=== PATIENT | female | born 1985 | race Caucasian/White ===

== ENCOUNTER 2017-11-21 10:56 | Inpatient (IN) | payer BC ==
[2017-11-21] MEDS ORDERED: Butorphanol 1 MG/ML SDV IVPUSH PRN (11:26)
[2017-11-21] MEDS ORDERED: Misoprostol 200 MCG Tab PO PRN (11:26)
[2017-11-21] MEDS ORDERED: Carboprost Tromethamine 250 MCG/1 ML Amp IM PRN (11:26)
[2017-11-21] MEDS ORDERED: Sodium Chloride 0.9% 2.5 ML Syringe FLUSH PRN ×2 (11:26→11:38)
[2017-11-21] MEDS ORDERED: Nalbuphine 10 MG/1 ML Vial IVPUSH PRN (11:26)
[2017-11-21] MEDS ORDERED: Water For Irrigation,Sterile 1,000 ML Container IRR PRN (11:26)
[2017-11-21] MEDS ORDERED: Sodium Chloride 0.9% 10 ML Syringe FLUSH PRN ×2 (11:26→11:38)
[2017-11-21] MEDS ORDERED: Methylergonovine 0.2 MG/1 ML Amp IM PRN (11:26)
[2017-11-21] MEDS ORDERED: Terbutaline 1 MG/ML SDV SUBCUT PRN (11:26)
[2017-11-21] MEDS ORDERED: Lidocaine 1% 50 ML MDV INJECT PRN (11:26)
[2017-11-21] MEDS ORDERED: Oxytocin/0.9 % Sodium Chloride 30 UNIT/500 ML BAG IV SCH ×2 (11:30)
[2017-11-21] MEDS ORDERED: Lactated Ringers 1,000 ML IV SCH (11:30)
[2017-11-21] MEDS ORDERED: Magnesium Sulfate/Water 4 GM in Premix Bag 1 BAG IV ONE ×2 (11:33→11:38)
[2017-11-21] MEDS ORDERED: Calcium Gluconate 10% 1 GM/10 ML SDV IV PRN (11:38)
[2017-11-21] MEDS ORDERED: Magnesium Sulfate/Water 40 GM/1,000 ML BAG IV SCH ×2 (11:45)
[2017-11-21 12:36] LABS: CHLORIDE,CL 106 mmol/L (98-110); SODIUM,NA 137 mmol/L (136-146)
[2017-11-21] MEDS ORDERED: Carboprost Tromethamine 250 MCG/1 ML Amp ONE (21:21)
[2017-11-21] MEDS ORDERED: Acetaminophen 500 MG Tab PO PRN (21:39)
[2017-11-21] MEDS ORDERED: Bisacodyl 10 MG Supp RECTAL PRN (21:39)
[2017-11-21] MEDS ORDERED: Witch Hazel Medicated Pads 40/Jar TOP PRN (21:39)
[2017-11-21] MEDS ORDERED: oxyCODONE 5 MG Tab PO PRN (21:39)
[2017-11-21] MEDS ORDERED: Docusate Sodium 100 MG Cap PO PRN (21:39)
[2017-11-21] MEDS ORDERED: Benzocaine/Menthol 20%-0.5% Spray 78 GM Cannister TOP PRN (21:39)
[2017-11-21] MEDS ORDERED: Lanolin 100% Cream 7 GM Tube TOP PRN (21:39)
--- NOTE | 2017-11-22 02:07 | OR ---
SURGEON: Keysha Rodriguez M.D. DATE OF PROCEDURE: 11/21/2017 PREOPERATIVE DIAGNOSIS: 37-week intrauterine with mild preeclampsia. POSTOPERATIVE DIAGNOSIS: 37-week intrauterine with mild preeclampsia. PROCEDURE: Pitocin induction of labor, term spontaneous vaginal delivery with magnesium for seizure prophylaxis. ANESTHESIA: None. EBL: Approximately 500 mL. She was given a single dose of Hemabate. COMPLICATIONS: None known. DISPOSITION: Mother and baby are in LDRP in good condition. BRIEF HISTORY: This is a 32-year-old female. She is G3, P2 who presents for induction of labor at 37 weeks. She has had elevated blood pressures in the clinic in the 140- 150/80+ range with proteinuria. Her 24-hour urine was 342 mg and she was given the option of continued expectant management versus induction of labor. She does desire induction of labor. I explained that she does require magnesium as she carries a diagnosis of mild preeclampsia based on blood pressures elevated and 24-hour urine over 300 mg of protein. She was started on magnesium for seizure prophylaxis. She was started on Pitocin. She was initially 1-2 cm dilated, 50% effaced, -3 station. When she was 3-4 cm dilated, artificial rupture of membranes was performed. She was continued on Pitocin at 16 milliunits per minute and she progressed to complete with category 1 heart tones throughout labor. DESCRIPTION OF PROCEDURE: With the patient in dorsal lithotomy position, the patient pushed over 3 contractions to a 5+ station, at which time the head was delivered spontaneously and atraumatically over the perineum with support, with subsequent delivery of the 's shoulders and body without any difficulty. The infant was bulb suctioned by nose and mouth. The cord was clamped x2 after it had ceased to pulsate and the was handed to the mother in the presence of the nurse attending delivery. The infant was a liveborn female, scores 7 and 8, weight is 2620 g. Cord blood was collected for cord ABGs as well as routine cord blood sampling. Pitocin was initiated after delivery of the to assist with delivery of the placenta which was delivered spontaneously, Schultze intact with 3 vessels. Upon inspection of the pelvis and perineum, there were no periurethral, vaginal sidewall, cervical, rectal, or perineal lacerations. EBL was approximately 500 mL. Approximately 10 minutes after the baby was born, she did have an additional gush of fluid with fundal massage and IV Pitocin. The fundus would firm up for several minutes, but then would become boggy again, therefore she did receive a single dose of Hemabate 250 mcg with a total blood loss of approximately 500 mL. There were no known complications. Sponge, needle, and instrument counts were correct. The mother and remained in LDRP in good condition. [place] / ANGÉLICA /[id number]
[2017-11-22] MEDS: Ibuprofen 400 MG Tab PO PRN ×3 (03:06→19:59)
--- NOTE | 2017-11-22 10:41 | PCM.PNPP ---
- General Info Functional Status: Reports: Pain Controlled, Tolerating Diet, Ambulating, Urinating - Review of Systems General: Reports: No Symptoms HEENT: Reports: No Symptoms Pulmonary: Reports: No Symptoms Cardiovascular: Reports: No Symptoms Gastrointestinal: Reports: No Symptoms Genitourinary: Reports: No Symptoms Musculoskeletal: Reports: No Symptoms Skin: Reports: No Symptoms Neurological: Reports: No Symptoms Psychiatric: Reports: No Symptoms - Patient Data Vital Signs - Most Recent: Last Vital Signs Temp 36.4 C 11/22/17 05:00 Pulse 83 11/22/17 08:00 Resp 17 11/22/17 08:00 BP 108/58 L 11/22/17 08:00 Pulse Ox 95 11/22/17 08:00 Weight - Most Recent: 100.698 kg I&O - Last 24 Hours: Intake & Output 11/21/17 11/22/17 11/22/17 22:59 06:59 14:59 Intake Total 2729 Output Total 3500 Balance -771 Lab Results - Last 24 Hours: Laboratory Results - last 24 hr 11/21/17 11/21/17 11/21/17 Range/Units 10:02 12:02 12:02 WBC 11.68 H (4.0-11.0) K/uL RBC 3.79 L (4.30-5.90) M/uL Hgb 11.4 L (12.0-16.0) g/dL Hct 34.5 L (36.0-46.0) % MCV 91.0 (80.0-98.0) fL MCH 30.1 (27.0-32.0) pg MCHC 33.0 (31.0-37.0) g/dL RDW Std Deviation 45.4 (28.0-62.0) fl RDW Coeff of Joshua 14 (11.0-15.0) % Plt Count 262 (150-400) K/uL MPV 11.10 (7.40-12.00) fL Nucleated RBC % 0.0 /100WBC Nucleated RBCs # 0 K/uL Sodium 137 (136-146) mmol/L Potassium 3.9 (3.5-5.1) mmol/L Chloride 106 (98-110) mmol/L Carbon Dioxide 23 (21-31) mmol/L BUN 7 (6.0-23.0) mg/dL Creatinine 0.7 (0.6-1.5) mg/dL Est Cr Clr Drug Dosing 100.78 mL/min Estimated GFR (MDRD) > 60.0 ml/min Glucose 83 (60-110) mg/dL Uric Acid 5.4 (2.1-6.2) mg/dL Calcium 8.9 (8.8-10.8) mg/dL Magnesium (1.5-2.3) mEq/L Total Bilirubin 0.3 (0.1-1.5) mg/dL AST 22 (5-40) IU/L ALT 22 (8-54) IU/L Alkaline Phosphatase 200 H (40-150) Total Protein 6.2 (6.0-8.0) g/dL Albumin 3.4 L (3.5-5.0) g/dL Globulin 2.8 (2.0-3.5) g/dL Albumin/Globulin Ratio 1.2 L (1.3-2.8) Blood Type A POSITIVE Antibody Screen NEGATIVE 11/21/17 11/21/17 11/22/17 Range/Units 17:22 23:13 06:12 WBC (4.0-11.0) K/uL RBC (4.30-5.90) M/uL Hgb (12.0-16.0) g/dL Hct (36.0-46.0) % MCV (80.0-98.0) fL MCH (27.0-32.0) pg MCHC (31.0-37.0) g/dL RDW Std Deviation (28.0-62.0) fl RDW Coeff of Joshua (11.0-15.0) % Plt Count (150-400) K/uL MPV (7.40-12.00) fL Nucleated RBC % /100WBC Nucleated RBCs # K/uL Sodium (136-146) mmol/L Potassium (3.5-5.1) mmol/L Chloride (98-110) mmol/L Carbon Dioxide (21-31) mmol/L BUN (6.0-23.0) mg/dL Creatinine (0.6-1.5) mg/dL Est Cr Clr Drug Dosing mL/min Estimated GFR (MDRD) ml/min Glucose (60-110) mg/dL Uric Acid (2.1-6.2) mg/dL Calcium (8.8-10.8) mg/dL Magnesium 3.1 H 3.6 H 4.2 H (1.5-2.3) mEq/L Total Bilirubin (0.1-1.5) mg/dL AST (5-40) IU/L ALT (8-54) IU/L Alkaline Phosphatase (40-150) Total Protein (6.0-8.0) g/dL Albumin (3.5-5.0) g/dL Globulin (2.0-3.5) g/dL Albumin/Globulin Ratio (1.3-2.8) Blood Type Antibody Screen 11/22/17 Range/Units 06:12 WBC (4.0-11.0) K/uL RBC (4.30-5.90) M/uL Hgb 10.8 L (12.0-16.0) g/dL Hct 32.2 L (36.0-46.0) % MCV (80.0-98.0) fL MCH (27.0-32.0) pg MCHC (31.0-37.0) g/dL RDW Std Deviation (28.0-62.0) fl RDW Coeff of Joshua (11.0-15.0) % Plt Count (150-400) K/uL MPV (7.40-12.00) fL Nucleated RBC % /100WBC Nucleated RBCs # K/uL Sodium (136-146) mmol/L Potassium (3.5-5.1) mmol/L Chloride (98-110) mmol/L Carbon Dioxide (21-31) mmol/L BUN (6.0-23.0) mg/dL Creatinine (0.6-1.5) mg/dL Est Cr Clr Drug Dosing mL/min Estimated GFR (MDRD) ml/min Glucose (60-110) mg/dL Uric Acid (2.1-6.2) mg/dL Calcium (8.8-10.8) mg/dL Magnesium (1.5-2.3) mEq/L Total Bilirubin (0.1-1.5) mg/dL AST (5-40) IU/L ALT (8-54) IU/L Alkaline Phosphatase (40-150) Total Protein (6.0-8.0) g/dL Albumin (3.5-5.0) g/dL Globulin (2.0-3.5) g/dL Albumin/Globulin Ratio (1.3-2.8) Blood Type Antibody Screen Med Orders - Current: Current Medications Acetaminophen (Tylenol Extra Strength) 1,000 mg PO Q4H PRN PRN Reason: Pain Benzocaine/Menthol (Dermoplast Pain Relief 20%-0.5% [place]) 78 gm TOP ASDIRECTED PRN PRN Reason: Perineal Comfort Measure Bisacodyl (Dulcolax) 10 mg RECTAL .ONCE PRN PRN Reason: Constipation Butorphanol Tartrate (Stadol) 1 mg IVPUSH Q1H PRN PRN Reason: Pain Calcium Gluconate (Calcium Gluconate) 1 gm IV ASDIRECTED PRN PRN Reason: respiratory distress Carboprost Tromethamine (Hemabate Ds) 250 mcg IM ASDIRECTED PRN PRN Reason: Post Hemorrhage Last Admin: 11/21/17 21:41 Dose: 250 mcg Docusate Sodium (Colace) 100 mg PO BID PRN PRN Reason: Constipation Emollient Ointment (Lansinoh Hpa) 0 gm TOP ASDIRECTED PRN PRN Reason: Sore Nipples Lactated Ringer's (Ringers, Lactated) 1,000 mls @ 150 mls/hr IV ASDIRECTED ANDI Last Admin: 11/21/17 12:21 Dose: 150 mls/hr Oxytocin/Sodium Chloride (Oxytocin 30 Unit/500 Ml-Ns) 30 unit in 500 mls @ 50 mls/hr IV TITRATE ANDI Oxytocin/Sodium Chloride (Oxytocin 30 Unit/500 Ml-Ns) 30 unit in 500 mls @ 2 mls/hr IV TITRATE ANDI; 2 MUNITS/MIN PRN Reason: Protocol Last Titration: 11/21/17 18:37 Dose: 16 munits/min, 16 mls/hr Magnesium Sulfate (Magnesium Sulfate 40 Gm In Water 1000 Ml) 40 gm in 1,000 mls @ 50 mls/hr IV ASDIRECTED ANDI PRN Reason: 2 GM/HR Last Admin: 11/21/17 13:11 Dose: 2 gm/hr, 50 mls/hr Ibuprofen (Motrin) 400 mg PO Q4H PRN PRN Reason: Pain Last Admin: 11/22/17 03:06 Dose: 400 mg Lidocaine HCl (Xylocaine 1%) 50 ml INJECT .ONCE PRN PRN Reason: Laceration repair Methylergonovine Maleate (Methergine) 0.2 mg IM ASDIRECTED PRN PRN Reason: Post Hemorrhage Misoprostol (Cytotec) 200 mcg PO .ONCE PRN PRN Reason: Post Hemorrhage Nalbuphine HCl (Nubain) 10 mg IVPUSH Q1H PRN PRN Reason: Pain (severe 7-10) Oxycodone HCl (Oxycodone) 5 mg PO Q2H PRN PRN Reason: Pain Sodium Chloride (Saline Flush) 10 ml FLUSH ASDIRECTED PRN PRN Reason: Keep Vein Open Sodium Chloride (Saline Flush) 2.5 ml FLUSH ASDIRECTED PRN PRN Reason: Keep Vein Open Sodium Chloride (Saline Flush) 10 ml FLUSH ASDIRECTED PRN PRN Reason: Keep Vein Open Sodium Chloride (Saline Flush) 2.5 ml FLUSH ASDIRECTED PRN PRN Reason: Keep Vein Open Sterile Water (Sterile Water For Irrigation) 1,000 ml IRR ASDIRECTED PRN PRN Reason: delivery Last Admin: 11/21/17 21:41 Dose: 1,000 ml Terbutaline Sulfate (Brethine) 0.25 mg SUBCUT ASDIRECTED PRN PRN Reason: Tacysystole Witch Safia (Tucks) 1 pad TOP ASDIRECTED PRN PRN Reason: comfort care Discontinued Medications Carboprost Tromethamine (Hemabate Ds) Confirm Administered Dose 250 mcg .ROUTE .STK-MED ONE Stop: 11/21/17 21:22 Last Admin: 11/22/17 07:36 Dose: Not Given Magnesium Sulfate (Magnesium Sulfate 40 Gm In Water 1000 Ml) 40 gm in 1,000 mls @ 50 mls/hr IV ASDIRECTED ANDI PRN Reason: 2 GM/HR Magnesium Sulfate 4 gm/ Premix 100 mls @ 300 mls/hr IV ONETIME ONE Stop: 11/21/17 11:52 Magnesium Sulfate 4 gm/ Premix 100 mls @ 300 mls/hr IV .BOLUS ONE Stop: 11/21/17 11:57 Last Admin: 11/21/17 12:47 Dose: 300 mls/hr - Infant Interaction Infant Disposition, : [place] in Room with Family Interaction: Holding Feeding: Breastfed Infant; Nursed Well Support Person: - Recovery Exam Fundal Tone: Firm Fundal Level: At Umbilicus Fundal Placement: Midline Lochia Amount: Scant Lochia Color: Rubra/Red Perineum Description: Intact, Minimal Bruising/Swelling Episiotomy/Laceration: None Bladder Status: Voiding Urinary Elimination: Voided - Exam General: Alert, Oriented HEENT: Pupils Equal Neck: Supple Lungs: Normal Respiratory Effort GI/Abdominal Exam: Soft, Non-Tender, No Organomegaly, No Abnormal Bruit Extremities: Normal Inspection, Normal Range of Motion, Non-Tender, No Pedal Edema, Normal Capillary Refill Skin: Warm, Dry, Intact Neurological: No New Focal Deficit Psy/Mental Status: Alert, Normal Affect, Normal Mood - Problem List Review Problem List Initiated/Reviewed/Updated: Yes - My Orders Last 24 Hours: My Active Orders 11/21/17 11:26 Bedrest Bathroom Privileges [RC] ASDIRECTED May Shower [RC] ASDIRECTED Up ad Mayra [RC] ASDIRECTED Butorphanol [Stadol] 1 mg IVPUSH Q1H PRN Carboprost Tromethamine [Hemabate DS] 250 mcg IM ASDIRECTED PRN Lidocaine 1% [Xylocaine 1%] 50 ml INJECT .ONCE PRN Methylergonovine [Methergine] 0.2 mg IM ASDIRECTED PRN Misoprostol [Cytotec] 200 mcg PO .ONCE PRN Nalbuphine [Nubain] 10 mg IVPUSH Q1H PRN Sodium Chloride 0.9% [Saline Flush] 10 ml FLUSH ASDIRECTED PRN Sodium Chloride 0.9% [Saline Flush] 2.5 ml FLUSH ASDIRECTED PRN Terbutaline [Brethine] 0.25 mg SUBCUT ASDIRECTED PRN Water For Irrigation,Sterile [Sterile Water for Irrigation] 1,000 ml IRR ASDIRECTED PRN Scalp Electrode [WOMSER] Per Unit Routine Peripheral IV Insertion Adult [OM.PC] Routine Resuscitation Status Routine 11/21/17 11:30 Lactated Ringers [Ringers, Lactated] 1,000 ml IV ASDIRECTED Oxytocin/0.9 % Sodium Chloride [Oxytocin 30 Unit/500 ML-NS] 30 unit in 500 ml IV TITRATE Oxytocin/0.9 % Sodium Chloride [Oxytocin 30 Unit/500 ML-NS] 30 unit in 500 ml IV TITRATE Medication Administration Instruction [OM.PC] Q3H 11/21/17 11:38 Patient Status [ADT] Routine Bedrest [RC] ASDIRECTED Communication Order [RC] PRN Height and Weight [RC] DAILY Intake and Output [RC] QSHIFT Oxygen Therapy [RC] PRN Vital Signs [RC] ASDIRECTED Calcium Gluconate 1 gm IV ASDIRECTED PRN Sodium Chloride 0.9% [Saline Flush] 10 ml FLUSH ASDIRECTED PRN Sodium Chloride 0.9% [Saline Flush] 2.5 ml FLUSH ASDIRECTED PRN Electronic Heart Tones Ext w TOCO [WOMSER] Per Unit Routine Peripheral IV Insertion Adult [OM.PC] Routine 11/21/17 11:40 Notify Provider Status Change [RC] ASDIRECTED 11/21/17 11:45 Magnesium Sulfate/Water [Magnesium Sulfate 40 GM in Water 1000 ML] 40 gm in 1, 000 ml IV ASDIRECTED Deep Tendon Reflexes [WOMSER] Q1H 11/21/17 12:45 Deep Tendon Reflexes [WOMSER] Q1H 11/21/17 13:45 Deep Tendon Reflexes [WOMSER] Q1H 11/21/17 14:45 Deep Tendon Reflexes [WOMSER] Q1H 11/21/17 15:45 Deep Tendon Reflexes [WOMSER] Q1H 11/21/17 16:45 Deep Tendon Reflexes [WOMSER] Q1H 11/21/17 17:45 Deep Tendon Reflexes [WOMSER] Q1H 11/21/17 18:45 Deep Tendon Reflexes [WOMSER] Q1H 11/21/17 19:45 Deep Tendon Reflexes [WOMSER] Q1H 11/21/17 20:45 Deep Tendon Reflexes [WOMSER] Q1H 11/21/17 21:39 Vital Signs [RC] PER UNIT ROUTINE Acetaminophen [Tylenol Extra Strength] 1,000 mg PO Q4H PRN Benzocaine/Menthol [Dermoplast Pain Relief 20%-0.5% [place]] 78 gm TOP ASDIRECTED PRN Bisacodyl [Dulcolax] 10 mg RECTAL .ONCE PRN Docusate Sodium [Colace] 100 mg PO BID PRN Ibuprofen [Motrin] 400 mg PO Q4H PRN Lanolin [Lansinoh HPA] See Dose Instructions TOP ASDIRECTED PRN Witismael Safia [Tucks] 1 pad TOP ASDIRECTED PRN oxyCODONE 5 mg PO Q2H PRN Assess Lochia [WOMSER] Per Unit Routine Assess Uterine Involution [WOMSER] Per Unit Routine Peripheral IV Discontinue [OM.PC] Routine 11/21/17 21:40 Perineal Care [OM.PC] Per Unit Routine 11/21/17 21:45 Deep Tendon Reflexes [WOMSER] Q1H 11/21/17 22:45 Deep Tendon Reflexes [WOMSER] Q1 11/21/17 23:45 Deep Tendon Reflexes [WOMSER] Q1 11/21/17 Dinner Clear Liquid Diet [DIET] 11/22/17 00:45 Deep Tendon Reflexes [WOMSER] [facility] 11/22/17 01:45 Deep Tendon Reflexes [WOMSER] [facility] 11/22/17 02:45 Deep Tendon Reflexes [WOMSER] [facility] 11/22/17 03:45 Deep Tendon Reflexes [WOMSER] [facility] 11/22/17 04:45 Deep Tendon Reflexes [WOMSER] [facility] 11/22/17 05:45 Deep Tendon Reflexes [WOMSER] [facility] 11/22/17 06:45 Deep Tendon Reflexes [WOMSER] [facility] 11/22/17 07:45 Deep Tendon Reflexes [WOMSER] [facility] 11/22/17 08:45 Deep Tendon Reflexes [WOMSER] [facility] 11/22/17 09:45 Deep Tendon Reflexes [WOMSER] [facility] 11/22/17 10:45 Deep Tendon Reflexes [WOMSER] [facility] 11/22/17 11:30 MAGNESIUM [CHEM] Routine 11/22/17 Lunch Regular Diet [DIET] - Assessment Assessment:: PPD#1 with mild preeclampsia, excellent diuresis, normal BP will discontinue magnesium, if BP is good and baby stable she would like to go home this evening. - Plan Plan:: Discontinue magnesium, monitor BP, if stable dismiss to home. Discharge precautions reviewed.
[2017-11-22] MEDS ORDERED: Measles, Mumps & Rubella Vaccine 0.5 ML SDV SUBCUT ONE (13:01)
[2017-11-22 20:29] VITALS: BP 130/76
== END 2017-11-22 20:50 | disposition home or self-care (01) | DRG 560 ==
LOC: MW.OBCHECK 10:56 → MW.OB 10:58 → MW.OBCHECK 11:00 → OBSVTOIN 21:10
PROVIDERS: ADMIT Pediatrics; ATTEND Obstetrics & Gynecology
PROC: 10E0XZZ Delivery of Products of Conception, External Approach (ICD-10-PCS; principal; 2017-11-21)
PROC: 3E0P3VZ Introduction of Hormone into Female Reproductive, Percutaneous Approach (ICD-10-PCS; 2017-11-21)
DX: O14.04 Mild to moderate pre-eclampsia, complicating childbirth (principal); Z3A.37 37 weeks gestation of pregnancy; Z37.0 Single live birth
CPT/HCPCS: 36415; 59025; 59409; 80053; 83735; 84550; 85014; 85018; 85027; 86850; 86900; 86901; A9270-GY; J2590; J3475; J7120

== ENCOUNTER 2023-06-19 15:08 | Emergency (ER) | payer BC ==
[2023-06-19] MEDS ORDERED: Sodium Chloride 0.9% 2.5 ML Syringe FLUSH PRN (15:22)
[2023-06-19] MEDS ORDERED: Sodium Chloride 0.9% 10 ML Syringe FLUSH PRN (15:22)
[2023-06-19] MEDS ORDERED: Sodium Chloride 0.9% 1,000 ML IV STA ×3 (15:23→19:34)
[2023-06-19] MEDS ORDERED: Ondansetron 4 MG/2 ML SDV IVPUSH STA (15:51)
[2023-06-19] MEDS ORDERED: Morphine 4 MG/ML Syringe IVPUSH STA ×4 (15:51→22:43)
[2023-06-19 16:11] LABS: BASOPHILS PERCENT AUTO 0.1 % (0.0-1.5); EOSINOPHILS PERCENT AUTO 0.1 % (0.0-7.0); HEMATOCRIT 40.7 % (36.0-46.0); HEMOGLOBIN 13.7 g/dL (12.0-16.0); LYMPHOCYTES ABSOLUTE AUTO 0.8 K/uL (0.6-2.4); LYMPHOCYTES PERCENT AUTO 4.4 % (16.0-40.0); MEAN CORPUSCULAR HEMOGLOBIN 29.8 pg (27.0-32.0); MEAN CORPUSCULAR HGB CONC 33.7 g/dL (31.0-37.0); MEAN CORPUSCULAR VOLUME 88.7 fL (80.0-98.0); MONOCYTES ABSOLUTE AUTO 0.3 K/uL (0.0-0.8); MONOCYTES PERCENT AUTO 1.9 % (0.0-15.0); NEUTROPHILS ABSOLUTE AUTO 16.8 K/uL (1.4-5.7); NEUTROPHILS PERCENT AUTO 93.5 % (48.0-80.0); NRBC ABSOLUTE 0 K/uL; PLATELET COUNT,PLT 201 K/uL (150-400); RED BLOOD CELL COUNT 4.59 M/uL (4.30-5.90); WHITE BLOOD CELL COUNT,WBC 17.96 K/uL (4.0-11.0)
[2023-06-19] MEDS ORDERED: Piperacillin/Tazobactam 3.375 GM in Sodium Chloride 0.9% 100 ML IV STA ×2 (16:20→16:40)
[2023-06-19 16:34] LABS: A/G RATIO 1.1 (0.9-1.6); ALBUMIN 3.6 g/dL (3.4-5.0); BILIRUBIN TOTAL 0.7 mg/dL (0.2-1.0); CALCIUM 8.7 mg/dL (8.5-10.1); CARBON DIOXIDE,CO2 22.5 mmol/L (21.0-32.0); CREATININE 1.4 mg/dL (0.6-1.0); EST CRCL DRUG DOSING (CG) 46.59 mL/min; POTASSIUM,K 3.5 mmol/L (3.5-5.1); PROTEIN TOTAL,TP 6.8 g/dL (6.4-8.2)
[2023-06-19 17:18] LABS: INR 1.01 (0.86-1.11)
[2023-06-19] MEDS ORDERED: Iopamidol 755 Mg/ML 100 ML Bottle IVPUSH ONE (17:21)
[2023-06-19] MEDS ORDERED: Tamsulosin 0.4 MG Cap.ER PO STA (18:47)
[2023-06-19] MEDS ORDERED: Acetaminophen 500 MG Tab PO STA (20:12)
[2023-06-19] MEDS ORDERED: Piperacillin/Tazobactam 3.375 GM in Sodium Chloride 0.9% 100 ML IV ONE (22:30)
[2023-06-20] MEDS ORDERED: HYDROmorphone 1 MG/ML Syringe IVPUSH STA (00:15)
[2023-06-20] MEDS ORDERED: Acetaminophen 500 MG Tab PO STA (00:41)
[2023-06-20] MEDS ORDERED: Sodium Chloride 0.9% 1,000 ML IV ONE (00:49)
[2023-06-20] MEDS ORDERED: Norepinephrine Bit/D5W Premix 250 ML IV SCH (01:00)
[2023-06-20 01:21] VITALS: BP 98/47; PULSE 126
== END 2023-06-20 01:10 ==
LOC: MW.ED 15:08
DX: N13.2 Hydronephrosis with renal and ureteral calculous obstruction (principal); E03.9 Hypothyroidism, unspecified; Z88.8 Allergy status to other drugs, medicaments and biological substances; Z79.899 Other long term (current) drug therapy
CPT/HCPCS: 36415; 74177; 80053; 81025; 83605; 83690; 85025; 85610; 87040; 87077; 87154; 87186; 96361; 96365; 96366; 96375; 96376; 99285; A9270; J1170; J2270; J2405; J2543; J3490; J7030; Q9967